=== PATIENT | male | born 1995 | race Caucasian/White ===

== ENCOUNTER 2017-08-24 21:33 | Emergency (ER) | payer OTHER ==
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
[2017-08-24] MEDS ORDERED: IBUPROFEN 200 MG TAB PO ONE (22:23)
[2017-08-24] MEDS ORDERED: HYDROCOD/APAP 5/325 PREPACK#6 BTL TAKEHOME ONE ×2 (23:08→23:11)
[2017-08-24 23:14] VITALS: BP 124/82; PULSE 91; RESP 16; TEMP 98.1; O2SAT 96
== END 2017-08-24 23:15 | disposition home or self-care (01) ==
DX: S52.321A Displaced transverse fracture of shaft of right radius, initial encounter for closed fracture (principal); F17.200 Nicotine dependence, unspecified, uncomplicated; V03.12XA Pedestrian on skateboard injured in collision with car, pick-up truck or van in traffic accident, initial encounter; Y92.410 Unspecified street and highway as the place of occurrence of the external cause; Y99.8 Other external cause status; Y93.51 Activity, roller skating (inline) and skateboarding

== ENCOUNTER 2017-09-13 13:56 | Emergency (ER) | payer OTHER ==
[2017-09-13 14:14] VITALS: TEMP 97.9
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
[2017-09-13 16:52] VITALS: BP 115/67; PULSE 70; RESP 16; O2SAT 95
== END 2017-09-13 16:51 | disposition home or self-care (01) ==
DX: S23.41XA Sprain of ribs, initial encounter (principal); F17.200 Nicotine dependence, unspecified, uncomplicated; X58.XXXA Exposure to other specified factors, initial encounter; Y99.8 Other external cause status; Y93.89 Activity, other specified